=== PATIENT | male | born 1995 | race Two or more races ===

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

== ENCOUNTER 2017-01-23 16:01 | Emergency (ER) | payer OTHER ==
[~2017-01-23] VITALS: Ht 180.3 cm; Wt 83.5 kg
[~2017-01-23 16:01] MED LIST changes: +ANUSOL-HC30 GM RC; +COLACE100 MG ORAL
[2017-01-23] MEDS ORDERED: NKM (16:07)
--- NOTE | 2017-01-23 16:29 | Emergency Room Report ---
History of Present Illness General Chief Complaint: General Complaint Source: Patient Present Illness HPI 21-year-old male presents to the emergency department complaining of continued hemorrhoids despite previously been prescribed topical medication. Patient states that overall his pain has improved however he still will have recurrence of hemorrhoids with bowel movements or sitting for long periods of time. Patient states he was not followed up with a primary care doctor as he does not have one. Patient denies fevers, chills, blood in the stool. Denies BRBPR. Denies constipation states she has a bowel movement daily, has been taking Colace previously prescribed. He denies abdominal pain, nausea, vomiting, or significant changes in weight. Allergies: Coded Allergies: No Known Allergies (Unverified , 04/30/13) Patient History Past Medical History: see triage record Past Surgical History: none Pertinent Family History: none Immunizations: UTD Reviewed Nursing Documentation: PMH: Agreed, PSxH: Agreed Nursing Documentation-PMH Past Medical History: No Stated History Review of Systems All Other Systems: negative except mentioned in HPI Physical Exam Vital Signs Date Time Temp Pulse Resp B/P (MAP) Pulse Ox O2 Delivery O2 Flow Rate FiO2 01/23/17 16:03 98.2 68 19 141/96 97 Room Air Sp02 EP Interpretation: reviewed, normal General Appearance: no apparent distress, alert, GCS 15, non-toxic Head: normocephalic, atraumatic Eyes: bilateral eye normal inspection, bilateral eye PERRL ENT: hearing grossly normal, normal voice Neck: full range of motion Respiratory: lungs clear, normal breath sounds, speaking full sentences Cardiovascular #1: regular rate, rhythm Gastrointestinal: normal bowel sounds, non tender, soft, no guarding, no rebound Rectal: hemorrhoids - hemorrhoid noted in the 5 o'clock position, small in size , non-thrombosed, pink in color no evidence of infection or bleeding. Musculoskeletal: back normal, gait/station normal Neurologic: alert, oriented x3, responsive, motor strength/tone normal, sensory intact, speech normal Skin: normal color, no rash, warm/dry, well hydrated Medical Decision Making PA Attestation Dr. Romero is my supervising Physician whom patient management has been discussed with. Diagnostic Impression: Primary Impression: External hemorrhoids ER Course 21-year-old male presents to the emergency department complaining of continued hemorrhoids despite previously been prescribed topical medication. Patient states that overall his pain has improved however he still will have recurrence of hemorrhoids with bowel movements or sitting for long periods of time. Patient states he was not followed up with a primary care doctor as he does not have one. Patient denies fevers, chills, blood in the stool. Denies BRBPR. Denies constipation states she has a bowel movement daily, has been taking Colace previously prescribed. He denies abdominal pain, nausea, vomiting, or significant changes in weight. - Denies blood Ddx considered but are not limited to constipation , anal fissure, perianal abscess, rectal wall tear, thrombosed hemorrhoid, hemorrhoid. Vital signs: are WNL, pt. is afebrile H&PE are most consistent with hemorrhoid , secondary to straining/ constipation. bowl sounds are normo active. - non evidence of thrombosis. -d/w pt. importance of PCP follow up. ORDERS: Under quite at this time ED INTERVENTIONS: - Discussed the patient's self care interventions for hemorrhoids DISCHARGE: At this time pt. is stable for d/c to home. Will provide printed patient care instructions, and any necessary prescriptions. Care plan and follow up instructions have been discussed with the patient prior to discharge. Last Vital Signs Date Time Temp Pulse Resp B/P (MAP) Pulse Ox O2 Delivery O2 Flow Rate FiO2 01/23/17 16:03 98.2 68 19 141/96 97 Room Air Disposition: HOME, SELF-CARE Condition: Stable Scripts Docusate Sodium* (COLACE*) 100 Mg Capsule 100 MG ORAL TWICE A DAY for 15 Days, #30 CAP Prov: Roxy Borrego 01/23/17 Hydrocortisone Hc 2.5% Cream (ANUSOL-HC 2.5% CREAM) Y Cr 1 APPLIC RC TID, #30 GM Prov: Roxy Borrego 01/23/17 Patient Instructions: Hemorrhoids Additional Instructions: Take medications as directed. Follow up with a Primary Care Provider in 3-5 days, even if your symptoms have resolved. --Please review list of primary care clinics, if you do not already have a primary care provider Return sooner to ED if new symptoms occur, or current symptoms become worse. - Please note that this Emergency Department Report was dictated using [employer] grader operator technology software, occasionally this can lead to erroneous entry secondary to interpretation by the dictation equipment. Roxy Borrego Jan 23, 2017 16:29
[2017-01-23] MEDS ORDERED: COLACE100 MG ORAL (16:31)
[2017-01-23] MEDS ORDERED: ANUSOL-HC30 GM RC (16:31)
[2017-01-23 16:36] VITALS: BP 141/96
== END 2017-01-23 16:36 | disposition home or self-care (01) ==
LOC: EMR 16:20
DX: K64.4 Residual hemorrhoidal skin tags (principal)
CPT/HCPCS: 99283

== ENCOUNTER 2017-02-08 13:57 | Emergency (ER) | payer OTHER ==
[~2017-02-08] VITALS: Ht 180.3 cm; Wt 83.5 kg
[2017-02-08 14:48] LABS: APPEARANCE,URINE CLEAR; BILIRUBIN, URINE NEGATIVE (NEGATIVE); GLUCOSE, URINE (UA) NEGATIVE (NEGATIVE); KETONES,URINE NEGATIVE (NEGATIVE); LEUKOCYTE ESTERASE ,URINE 1+ (NEGATIVE); NITRITE,URINE NEGATIVE (NEGATIVE); PH,URINE 7 (4.5-8.0); PROTEIN,URINE NEGATIVE (NEGATIVE); UROBILINOGEN,URINE NORMAL MG/DL (0.0-1.0)
[2017-02-08 15:00] LABS: COLOR,URINE YELLOW
[2017-02-08] MEDS ORDERED: TERBINAFINE HC250 MG PO (15:06)
[2017-02-08 15:15] VITALS: BP 121/81
--- NOTE | 2017-02-08 15:25 | Emergency Room Report ---
History of Present Illness General Chief Complaint: Male Urogenital Problems Source: Patient Present Illness [facility] The patient is a 21-year-old male presenting for possible STD and rash. He noticed a rash on the groin and around his penis approximately 2 weeks prior. He describes this as itchy and burning. He states that he has been sexually active with only one female partner and uses condoms. He denies any symptoms from his partner. He denies any other symptoms including nausea, vomiting, fever, chills, abdominal pain, back pain, dysuria, hematuria, penile discharge Allergies: Coded Allergies: No Known Allergies (Unverified , 04/30/13) Patient History Past Medical History: see triage record Pertinent Family History: none Reviewed Nursing Documentation: PMH: Agreed, PSxH: Agreed Nursing Documentation-PMH Past Medical History: No Stated History Review of Systems All Other Systems: negative except mentioned in HPI Physical Exam Vital Signs Date Time Temp Pulse Resp B/P (MAP) Pulse Ox O2 Delivery O2 Flow Rate FiO2 02/08/17 14:02 98.1 75 18 130/83 98 Room Air Sp02 EP Interpretation: reviewed, normal General Appearance: no apparent distress, alert, GCS 15, non-toxic Head: normocephalic, atraumatic Eyes: bilateral eye normal inspection, bilateral eye PERRL ENT: hearing grossly normal, normal pharynx, no angioedema, normal voice Neck: full range of motion, supple/symm/no masses Respiratory: chest non-tender, lungs clear, normal breath sounds, speaking full sentences Cardiovascular #1: regular rate, rhythm, no edema Gastrointestinal: normal bowel sounds, non tender, soft, non-distended, no guarding, no rebound Genitourinary: normal inspection, no CVA tenderness Musculoskeletal: back normal, gait/station normal, normal range of motion, non- tender Neurologic: alert, oriented x3, responsive, motor strength/tone normal, sensory intact, speech normal Psychiatric: judgement/insight normal, memory normal, mood/affect normal, no suicidal/homicidal ideation Skin: rash - There are patches of erythema with some scaling. Sharply demarcated. Area is moist. Nontender. No edema Lymphatic: no adenopathy Medical Decision Making PA Attestation Dr. Dogde is my supervising physician. Patient management was discussed with my supervising physician Diagnostic Impression: Primary Impression: Tinea cruris ER Course The patient is a 21-year-old male presenting for possible STD and rash Differential diagnoses considered but not limited to: Gonorrhea, Chlamydia, herpes, tinea, urinary tract infection, among others PE: afebrile. NAD Abd is soft and non tender. : There are patches of erythema with some scaling. Sharply demarcated. Area is moist. Nontender. No edema. No penile tenderness. No lesions on penis. No scrotal edema or tenderness UA unremarkable The patient be treated for tinea and will be discharged home. ER precautions given Last Vital Signs Date Time Temp Pulse Resp B/P (MAP) Pulse Ox O2 Delivery O2 Flow Rate FiO2 02/08/17 15:15 98.1 80 16 121/81 97 Room Air Status: improved Disposition: HOME, SELF-CARE Condition: Improved Scripts Terbinafine Hcl* (LAMISIL*) 250 Mg Tablet 250 MG PO DAILY, #28 TAB Prov: EMMIE PEREZ 02/08/17 Patient Instructions: João Malone Additional Instructions: I discussed my findings with the patient. All questions and concerns have been answered. Treatment and medication compliance have been addressed. I advised the patient that they need to follow up with PMD in 3-5 days. Return to ED if symptoms worsen, new symptoms arise, or if needed for any reason. Patient verbalized understanding of discharge instructions. EMMIE PEREZ Feb 08, 2017 15:25
== END 2017-02-08 15:17 | disposition home or self-care (01) ==
LOC: EMR 14:16
DX: B35.6 Tinea cruris (principal)
CPT/HCPCS: 81003; 99283

== ENCOUNTER 2017-10-16 17:56 | Emergency (ER) | payer OTHER ==
[~2017-10-16] VITALS: Ht 177.8 cm; Wt 72.6 kg
[~2017-10-16 17:56] MED LIST changes: +TERBINAFINE HC250 MG PO
[2017-10-16 18:03] VITALS: BP 134/78
[2017-10-16] MEDS ORDERED: Acetaminophen 500mg (ES) tab ORAL ONE (18:30)
--- NOTE | 2017-10-16 18:35 | Emergency Room Report ---
History of Present Illness General Chief Complaint: Male Urogenital Problems Source: Patient Present Illness HPI 22-year-old male patient presents ER complaining of burning pain with urination for the past 2 days. Denies penile discharge, hematuria. Denies testicular pain or swelling. Denies penile rash or lesions. Reports his girlfriend exuberant similar symptoms and was seen in a ER, reports that her tests came back negative and she does not have any medications that she was referred to take. Reports sexually active, does not wear condoms. Denies flank pain, back pain, abdominal pain, fever, vomiting, chest pain, shortness of breath. Denies other acute symptoms. denies multiple sexual partners. Allergies: Coded Allergies: No Known Allergies (Unverified , 04/30/13) Patient History Past Medical History: see triage record Reviewed Nursing Documentation: PMH: Agreed; PSxH: Agreed Nursing Documentation-PMH Past Medical History: No Stated History Review of Systems All Other Systems: negative except mentioned in HPI Physical Exam Vital Signs Date Time Temp Pulse Resp B/P (MAP) Pulse Ox O2 Delivery O2 Flow Rate FiO2 10/16/17 18:03 98.2 87 18 134/78 97 Room Air 98.2 Sp02 EP Interpretation: reviewed, normal General Appearance: well appearing, no apparent distress, alert, GCS 15, non- toxic Head: normocephalic, atraumatic Eyes: bilateral eye normal inspection, bilateral eye PERRL ENT: hearing grossly normal, normal pharynx, no angioedema, normal voice, uvula midline, moist mucus membranes Neck: full range of motion Respiratory: lungs clear, normal breath sounds, no rhonchi, no respiratory distress, no accessory muscle use, no wheezing, speaking full sentences Cardiovascular #1: regular rate, rhythm, no edema Gastrointestinal: non tender, soft, no mass, non-distended, no guarding, no rebound Genitourinary: no CVA tenderness, deferred Musculoskeletal: back normal, digits/nails normal, gait/station normal, normal range of motion, non-tender Neurologic: alert, oriented x3, responsive, motor strength/tone normal, sensory intact Psychiatric: mood/affect normal Skin: no rash Medical Decision Making PA Attestation Dr. Kohler is my supervising Physician whom patient management has been discussed with. Diagnostic Impression: Primary Impression: Dysuria ER Course Pt presents to ED c/o dysuria 2 days. DDX considered but are not limited to cystitis, pyelonephritis, STI, urethritis. VITAL SIGNS are WNL, patient is afebrile. Ordered UA. ER COURSE UA unremarkable, no bacteria, no nitrites, low suspicion for UTI. does not require antibiotic coverage for UTI infection. Due to patient history of pain with urination and recent sexual activity without condom, will provide patient treatment with Rocephin and azithromycin while in the ER to cover for possible STI infection. Instructed patient to followup with STI clinic and/or primary care provider for further testing and treatment. Avoid sexual activity for the next 2 weeks. Wear condoms during sex. Patient was alert sexual partners need for testing and treatment. Followup with STI clinic for testing and treatment. take Tylenol for pain symptoms. Patient is resting comfortably in chair, nontoxic appearing, in no acute distress. Patient states they feel better and is ready to go home. DISCHARGE Patient is stable for discharge. Patient resting comfortably, in no acute distress, nontoxic appearing, talking without difficulty. Will provide with patient care instructions and any necessary prescriptions. Patient understands and agrees to treatment plan. Patient encouraged to drink plenty of fluids. Patient to take medication as instructed. Care plan and follow-up instructions provided. Patient questions asked and answered. Reports understanding and agreement to treatment plan. Patient instructed to follow-up with primary care provider in 3 - 5 days. ER precautions given. Patient instructed to return to ER immediately for any new or worsening of symptoms. Including but not limited to fever, abdominal pain , intractable vomiting. - Please note that this Emergency Department Report was dictated using [employer] Biosciencesinternal affairs investigator technology software, occasionally this can lead to erroneous entry secondary to interpretation by the dictation equipment. Labs Test 10/16/17 18:23 Urine Color Yellow Urine Appearance Clear Urine pH 7 (4.5-8.0) Urine Specific [place] 1.010 (1.005-1.035) Urine Protein Negative (NEGATIVE) Urine Glucose (UA) Negative (NEGATIVE) Urine Ketones 1+ (NEGATIVE) Urine Occult Blood Negative (NEGATIVE) Urine Nitrite Negative (NEGATIVE) Urine Bilirubin Negative (NEGATIVE) Urine Urobilinogen 1 MG/DL (0.0-1.0) Urine Leukocyte Esterase 1+ (NEGATIVE) Urine RBC 0-2 /HPF (0 - 0) Urine WBC 2-4 /HPF (0 - 0) Urine Squamous Epithelial Cells None /LPF (NONE/OCC) Urine Bacteria None /HPF (NONE) Urine Mucus Many /LPF (NONE/OCC) Last Vital Signs Date Time Temp Pulse Resp B/P (MAP) Pulse Ox O2 Delivery O2 Flow Rate FiO2 10/16/17 18:03 98.2 87 18 134/78 97 Room Air 98.2 Disposition: HOME, SELF-CARE Condition: Stable Patient Instructions: Dysuria, Sexually Transmitted Disease Additional Instructions: Followup with primary care provider in 3 -5 days. Take medications as directed. Patient questions asked and answered. ER precautions given, patient instructed to return to ER immediately for any new or worsening of symptoms. Roger Sy Oct 16, 2017 18:34
[2017-10-16 18:57] LABS: APPEARANCE,URINE CLEAR; BILIRUBIN, URINE NEGATIVE (NEGATIVE); GLUCOSE, URINE (UA) NEGATIVE (NEGATIVE); KETONES,URINE 1+ (NEGATIVE); LEUKOCYTE ESTERASE ,URINE 1+ (NEGATIVE); NITRITE,URINE NEGATIVE (NEGATIVE); PH,URINE 7 (4.5-8.0); PROTEIN,URINE NEGATIVE (NEGATIVE); UROBILINOGEN,URINE 1 MG/DL (0.0-1.0)
[2017-10-16 18:59] LABS: COLOR,URINE YELLOW
[2017-10-16] MEDS ORDERED: Azithromycin 250mg tab ORAL ONE (19:30)
[2017-10-16] MEDS ORDERED: Lidocaine 1% MPF 10mg/ml 5ml INJ ONE (19:30)
[2017-10-16 19:44] VITALS: BP 134/78
== END 2017-10-16 19:45 | disposition home or self-care (01) ==
LOC: EMR 18:29
DX: R30.0 Dysuria (principal)
CPT/HCPCS: 81003; 96372; 99283; J0696; Q0144

== ENCOUNTER 2018-02-24 17:10 | Emergency (ER) | payer OTHER ==
[~2018-02-24] VITALS: Ht 180.3 cm; Wt 83.5 kg
[2018-02-24 17:15] VITALS: BP 134/83
[2018-02-24] MEDS ORDERED: Phenazopyridine 200mg tab ORAL ONE (17:30)
[2018-02-24] MEDS ORDERED: Lidocaine 1% MPF 10mg/ml 5ml INJ ONE (17:45)
[2018-02-24] MEDS ORDERED: Azithromycin 250mg tab ORAL ONE (17:45)
[2018-02-24 17:47] LABS: APPEARANCE,URINE CLEAR; BILIRUBIN, URINE NEGATIVE (NEGATIVE); COLOR,URINE PALE YELLOW; GLUCOSE, URINE (UA) NEGATIVE (NEGATIVE); KETONES,URINE NEGATIVE (NEGATIVE); LEUKOCYTE ESTERASE ,URINE NEGATIVE (NEGATIVE); NITRITE,URINE NEGATIVE (NEGATIVE); PH,URINE 6.5 (4.5-8.0); PROTEIN,URINE NEGATIVE (NEGATIVE); UROBILINOGEN,URINE NORMAL MG/DL (0.0-1.0)
--- NOTE | 2018-02-24 18:02 | Emergency Room Report ---
History of Present Illness General Chief Complaint: Male Urogenital Problems Source: Patient Present Illness HPI 22-year-old male presents to the emergency department complaining of 6 out of 10 in severity dysuria 2 days. Patient reports recent unprotected intercourse and wants to be treated for STI. Patient denies penile discharge, swollen tender lymph nodes, joint pain, fevers, chills, testicular pain or swelling. Patient denies genital lesions or rashes. He denies hematuria, urinary frequency or urgency. Denies aggravating or relieving factors. Allergies: Coded Allergies: No Known Allergies (Unverified , 04/30/13) Patient History Past Medical History: see triage record Past Surgical History: none Pertinent Family History: none Immunizations: UTD Reviewed Nursing Documentation: PMH: Agreed; PSxH: Agreed Nursing Documentation-PMH Past Medical History: No Stated History Review of Systems All Other Systems: negative except mentioned in HPI Physical Exam Vital Signs Date Time Temp Pulse Resp B/P (MAP) Pulse Ox O2 Delivery O2 Flow Rate FiO2 02/24/18 17:14 98.2 68 16 134/83 99 Room Air Sp02 EP Interpretation: reviewed, normal General Appearance: no apparent distress, alert, GCS 15, non-toxic Head: normocephalic, atraumatic Eyes: bilateral eye normal inspection, bilateral eye PERRL ENT: hearing grossly normal, normal voice Neck: full range of motion Respiratory: lungs clear, normal breath sounds, speaking full sentences Cardiovascular #1: regular rate, rhythm Gastrointestinal: non tender, soft Genitourinary: normal inspection, no CVA tenderness, deferred - genital exam deferred. Musculoskeletal: back normal, gait/station normal, normal range of motion, non- tender Neurologic: alert, oriented x3, responsive, motor strength/tone normal, sensory intact, speech normal, grossly normal Psychiatric: judgement/insight normal Skin: normal color, no rash, warm/dry, well hydrated Lymphatic: no adenopathy Medical Decision Making PA Attestation Dr. brady is my supervising Physician whom patient management has been discussed with. Diagnostic Impression: Primary Impression: Urethritis ER Course 22-year-old male presents to the emergency department complaining of 6 out of 10 in severity dysuria 2 days. Patient reports recent unprotected intercourse and wants to be treated for STI. Patient denies penile discharge, swollen tender lymph nodes, joint pain, fevers, chills, testicular pain or swelling. Patient denies genital lesions or rashes. He denies hematuria, urinary frequency or urgency. Denies aggravating or relieving factors. Ddx considered but are not limited to UTi , Urethritis, LGV, STI, Stone, Cystitis, prostatitis Genital exam was deferred, will be treating pt. prophylactically. Vital signs: are WNL, pt. is afebrile H&PE are most consistent with Urethritis ORDERS: - UA : few bacteria but no elevated or increase in WBC's or Leuks. most likely contamination will be refluxed to culture. ED INTERVENTIONS: -250mg Rocephin IM -1gm Azithromycin DISCHARGE: At this time pt. is stable for d/c to home. Will provide printed patient care instructions, and any necessary prescriptions. Care plan and follow up instructions have been discussed with the patient prior to discharge. Labs Test 02/24/18 17:30 Urine Color Pale yellow Urine Appearance Clear Urine pH 6.5 (4.5-8.0) Urine Specific [place] 1.015 (1.005-1.035) Urine Protein Negative (NEGATIVE) Urine Glucose (UA) Negative (NEGATIVE) Urine Ketones Negative (NEGATIVE) Urine Blood 1+ (NEGATIVE) Urine Nitrite Negative (NEGATIVE) Urine Bilirubin Negative (NEGATIVE) Urine Urobilinogen Normal MG/DL (0.0-1.0) Urine Leukocyte Esterase Negative (NEGATIVE) Urine RBC 2-4 /HPF (0 - 0) Urine WBC 0-2 /HPF (0 - 0) Urine Squamous Epithelial Cells None /LPF (NONE/OCC) Urine Bacteria Few /HPF (NONE) Last Vital Signs Date Time Temp Pulse Resp B/P (MAP) Pulse Ox O2 Delivery O2 Flow Rate FiO2 02/24/18 17:15 98.2 68 16 134/83 99 Room Air Disposition: HOME, SELF-CARE Condition: Stable Referrals: [facility] (PCP) Patient Instructions: Urethritis, Adult Additional Instructions: Take medications as directed. -ABX take 1 week for full effect. Until then, refrain from unprotected intercourse as you are still considered contagious. Follow up with a Primary Care Provider in 3-5 days, even if your symptoms have resolved. --Please review list of primary care clinics, if you do not already have a primary care provider Return sooner to ED if new symptoms occur, or current symptoms become worse. - Please note that this Emergency Department Report was dictated using [employer] night technology software, occasionally this can lead to erroneous entry secondary to interpretation by the dictation equipment. Roxy Borrego Feb 24, 2018 18:02
[2018-02-24 18:09] VITALS: BP 125/76
== END 2018-02-24 18:10 | disposition home or self-care (01) ==
LOC: EMR 17:34
DX: N34.2 Other urethritis (principal)
CPT/HCPCS: 81003; 96372; 99283; J0696; Q0144

== ENCOUNTER 2018-06-23 08:54 | Emergency (ER) | payer OTHER ==
[~2018-06-23] VITALS: Ht 177.8 cm; Wt 77.1 kg
[2018-06-23 09:28] VITALS: BP 126/73
--- NOTE | 2018-06-23 09:30 | NUR ---
ED Nurse Note:pt. came with abscess on left lip since yesterday
--- NOTE | 2018-06-23 10:06 | Emergency Room Report ---
History of Present Illness General Chief Complaint: Skin Rash/Abscess Source: Patient Present Illness HPI This patient states that he noted a swelling on his upper lip for the past 24 hours. He states that it is tender. He admits that he was in [place] 3 days ago and did have mouth and sexual contact with a person he did not know. He states the sex was protected. He denies sore throat. Denies fever or chills. He denies headache or neck pain. He has no other complaints. Allergies: Coded Allergies: No Known Allergies (Unverified , 06/23/18) Patient History Past Medical History: none, see triage record Social History: Reports: alcohol use; Denies: smoking, drug use Reviewed Nursing Documentation: PMH: Agreed; PSxH: Agreed Nursing Documentation-PMH Past Medical History: No Stated History Review of Systems All Other Systems: negative except mentioned in HPI Physical Exam Vital Signs Date Time Temp Pulse Resp B/P (MAP) Pulse Ox O2 Delivery O2 Flow Rate FiO2 06/23/18 09:05 98.2 81 16 126/73 97 Room Air Sp02 EP Interpretation: reviewed, normal General Appearance: no apparent distress, alert, GCS 15, non-toxic Head: normocephalic, atraumatic Eyes: bilateral eye normal inspection, bilateral eye PERRL ENT: hearing grossly normal, normal pharynx, no angioedema, normal voice, other - Upper lip with vesicular and erythematous lesion. Neck: full range of motion, supple/symm/no masses Respiratory: no respiratory distress, no retraction, no accessory muscle use, speaking full sentences Rectal: deferred Musculoskeletal: back normal, gait/station normal, normal range of motion, non- tender Neurologic: alert, oriented x3, responsive, motor strength/tone normal, sensory intact, speech normal Psychiatric: judgement/insight normal, memory normal, mood/affect normal, no suicidal/homicidal ideation Skin: warm/dry, well hydrated, other - See above in ENT Medical Decision Making Diagnostic Impression: Primary Impression: Herpes simplex labialis ER Course This patient has findings on physical exam consistent with herpes simplex labialis. I will treat the patient with acyclovir. There does not appear to be any complications at this time. The patient is not immunocompromised. The patient is instructed to follow-up with his primary care physician. The patient given return precautions and follow-up instructions. Last Vital Signs Date Time Temp Pulse Resp B/P (MAP) Pulse Ox O2 Delivery O2 Flow Rate FiO2 06/23/18 09:28 98.2 82 16 126/73 97 Room Air Disposition: HOME, SELF-CARE Condition: Stable Referrals: [facility] ([facility]P) Denice Kohler DO Jun 23, 2018 10:06
[2018-06-23] MEDS ORDERED: ACYCLOVIR400 MG ORAL (10:07)
[2018-06-23 10:14] VITALS: BP 126/73
--- NOTE | 2018-06-23 10:15 | NUR ---
ER DISCHARGE NOTE: Patient is cleared to be discharged per ERMD, pt is aox4, on room air, with stable vital signs. pt was given dc and prescription instructions, pt was able to verbalize understanding, pt is able to ambulate with steady gait. pt took all belongings.
== END 2018-06-23 10:15 | disposition home or self-care (01) ==
LOC: EMR 09:20
DX: B00.1 Herpesviral vesicular dermatitis (principal)
CPT/HCPCS: 99282

== ENCOUNTER 2018-07-06 14:39 | Emergency (ER) | payer OTHER ==
[~2018-07-06] VITALS: Ht 177.8 cm; Wt 77.1 kg
[~2018-07-06 14:39] MED LIST changes: +ACYCLOVIR400 MG ORAL
[2018-07-06 14:51] VITALS: BP 129/85
[2018-07-06 15:24] LABS: APPEARANCE,URINE CLEAR; BILIRUBIN, URINE NEGATIVE (NEGATIVE); COLOR,URINE PALE YELLOW; GLUCOSE, URINE (UA) NEGATIVE (NEGATIVE); KETONES,URINE NEGATIVE (NEGATIVE); LEUKOCYTE ESTERASE ,URINE 1+ (NEGATIVE); NITRITE,URINE NEGATIVE (NEGATIVE); PH,URINE 6 (4.5-8.0); PROTEIN,URINE NEGATIVE (NEGATIVE); UROBILINOGEN,URINE NORMAL MG/DL (0.0-1.0)
--- NOTE | 2018-07-06 15:30 | Emergency Room Report ---
History of Present Illness General Chief Complaint: Male Urogenital Problems Source: Patient Present Illness HPI 23-year-old male past medical history here requesting to be tested for possible herpes virus infection. He was here recently 2 weeks ago for cold sore which she reports having for the first time does not recall having any more in the past and it started after his birthday weekend and vigorous. [place] having his partner being positive for any sexually transmitted diseases. Has painful lesions in the genitalia denies penile discharge or urinary symptoms. He took acyclovir when he was first diagnosed with cold sore 2 weeks ago and now has no more cold sores. Does not have a primary care physician and wants to be tested for HSV-1 and HSV-2. Patient would also like to know about HSV virus. Denies dysuria, hematuria, fever chills, nausea vomiting, and all other associated symptoms. Is not symptomatic during his ER visit today Allergies: Coded Allergies: No Known Allergies (Unverified , 06/23/18) Patient History Past Medical History: see triage record Past Surgical History: unable to obtain Pertinent Family History: none Immunizations: UTD Reviewed Nursing Documentation: PMH: Agreed; PSxH: Agreed Nursing Documentation-PMH Past Medical History: No Stated History Review of Systems All Other Systems: negative except mentioned in HPI Physical Exam Vital Signs Date Time Temp Pulse Resp B/P (MAP) Pulse Ox O2 Delivery O2 Flow Rate FiO2 07/06/18 14:51 98.4 63 15 129/85 97 Room Air Sp02 EP Interpretation: reviewed, normal General Appearance: normal inspection, well appearing Head: normocephalic, atraumatic Eyes: bilateral eye normal inspection, bilateral eye PERRL ENT: normal ENT inspection, normal pharynx, no angioedema, other - No cold sore noted Neck: normal inspection, supple Respiratory: normal inspection, lungs clear, no retraction Cardiovascular #1: normal inspection, no edema, no murmur Gastrointestinal: normal inspection, soft Rectal: deferred Genitourinary: no CVA tenderness Musculoskeletal: normal inspection, back normal Neurologic: normal inspection, alert Psychiatric: anxious Skin: normal inspection, normal color, no rash, warm/dry Lymphatic: normal inspection, no adenopathy Medical Decision Making PA Attestation Diagnosis and treatment plans were reviewed and discussed with my supervising physician Dr. Dodge Diagnostic Impression: Primary Impression: Cold sore Additional Impression: Routine screening for STI (sexually transmitted infection) ER Course 23-year-old male past medical history here requesting to be tested for possible herpes virus infection. He was here recently 2 weeks ago for cold sore which she reports having for the first time does not recall having any more in the past and it started after his birthday weekend and vigorous. [place] having his partner being positive for any sexually transmitted diseases. Has painful lesions in the genitalia denies penile discharge or urinary symptoms. He took acyclovir when he was first diagnosed with cold sore 2 weeks ago and now has no more cold sores. Does not have a primary care physician and wants to be tested for HSV-1 and HSV-2. Patient would also like to know about HSV virus. Denies dysuria, hematuria, fever chills, nausea vomiting, and all other associated symptoms. Is not symptomatic during his ER visit today Ddx considered but are not limited to herpes 1, herpes 2, STI screening, UTI Vital signs: are WNL, pt. is afebrile H&PE are most consistent with STI screening hx of cold sore ORDERS: HSV1 and 2 , UA ED INTERVENTIONS: None required at this time. DISCHARGE: At this time pt. is stable for d/c to home. Will provide printed patient care instructions, and any necessary prescriptions. Care plan and follow up instructions have been discussed with the patient prior to discharge. To follow-up with a primary care provider regarding the results as I told the patient that it takes at least a week for the results to be ready since it is a send out and it is not an emergency room criteria to expedite the results considering patient is currently asymptomatic patient to establish primary care after this visit. Last Vital Signs Date Time Temp Pulse Resp B/P (MAP) Pulse Ox O2 Delivery O2 Flow Rate FiO2 07/06/18 14:51 98.4 63 15 129/85 97 Room Air Disposition: HOME, SELF-CARE Condition: Stable Patient Instructions: Cold Sore, [id number] Elliott Guerrero Jul 06, 2018 15:30
--- NOTE | 2018-07-06 15:32 | NUR ---
ED Nurse Note: Collected blood specimen.
[2018-07-06 15:38] VITALS: BP 132/70
--- NOTE | 2018-07-06 15:38 | NUR ---
ER DISCHARGE NOTE: Pt was seen for evaluation. Pt had unprotected sex. Patient is cleared to be discharged per PA, pt is aox4, on room air, with stable vital signs. pt was given dc instructions, pt was able to verbalize understanding, pt id band removed. pt is able to ambulate with steady gait. pt took all belongings.
== END 2018-07-06 15:38 | disposition home or self-care (01) ==
LOC: EMR 15:35
DX: B00.1 Herpesviral vesicular dermatitis (principal); Z11.3 Encounter for screening for infections with a predominantly sexual mode of transmission
CPT/HCPCS: 81001; 86695; 86696; 99283

== ENCOUNTER 2018-09-26 20:23 | Emergency (ER) | payer OTHER ==
[~2018-09-26] VITALS: Ht 177.8 cm; Wt 77.1 kg
[2018-09-26 20:40] VITALS: BP 124/73
--- NOTE | 2018-09-26 20:40 | NUR ---
ER Nurse Note: Pt came from home c/o flu like symptoms for since one day. Pt stated he has a sore throat, difficulty swollowing. Pt denies n/v, chills. O2 sat >94% RA. Will continue to montior.
--- NOTE | 2018-09-26 20:51 | Emergency Room Report ---
History of Present Illness General Chief Complaint: Flu Like Symptoms Source: Patient Present Illness HPI The patient presents with fevers chills and sore throat that began this afternoon. It hurts to swallow. He has muscle aches 7/10 at this time. He has not taken any medication. There is no nausea, vomiting, diarrhea or dysuria. At his work he is exposed to sick people. 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 Allergies: Coded Allergies: No Known Allergies (Unverified , 09/26/18) Patient History Past Medical History: see triage record Social History: Denies: smoking, alcohol use, drug use Social History Narrative rail crew member [employer] Reviewed Nursing Documentation: PMH: Agreed; PSxH: Agreed Review of Systems All Other Systems: negative except mentioned in HPI Physical Exam Vital Signs Date Time Temp Pulse Resp B/P (MAP) Pulse Ox O2 Delivery O2 Flow Rate FiO2 09/26/18 20:28 101.1 128 26 124/73 (90) 96 Room Air Sp02 EP Interpretation: reviewed, normal General Appearance: well appearing, no apparent distress Head: normocephalic, atraumatic Eyes: bilateral eye normal inspection, bilateral eye PERRL ENT: hearing grossly normal, normal voice, moist mucus membranes, tonsillar swelling, pharyngeal erythema Neck: full range of motion, supple Respiratory: no respiratory distress, speaking full sentences Cardiovascular #1: regular rate, rhythm Cardiovascular #2: 2+ radial (R) Gastrointestinal: normal inspection Musculoskeletal: digits/nails normal, gait/station normal, normal range of motion, no calf tenderness Neurologic: alert, oriented x3, grossly normal Psychiatric: mood/affect normal Skin: no rash Medical Decision Making Diagnostic Impression: Primary Impression: Acute pharyngitis Qualified Codes: J02.9 - Acute pharyngitis, unspecified ER Course Patient presents with fever and sore throat with muscle aches. Differential includes a viral versus bacterial pharyngitis. Antibiotics, prednisone and Tylenol are indicated. Patient is stable for outpatient observation and treatment. Last Vital Signs Date Time Temp Pulse Resp B/P (MAP) Pulse Ox O2 Delivery O2 Flow Rate FiO2 09/26/18 21:40 101.2 09/26/18 21:40 98 20 128/76 98 Room Air Status: improved Disposition: HOME, SELF-CARE Condition: Improved Scripts Acetaminophen (Tylenol) 325 Mg Tablet 650 MG ORAL Q6H PRN for Prn Pain/Headache/Temp > 101, #20 TAB 0 Refills Prov: Moy Harrison MD 09/26/18 Ibuprofen* (MOTRIN*) 600 Mg Tablet 600 MG ORAL Q6H PRN for For Pain, #20 TAB 0 Refills Prov: Moy Harrison MD 09/26/18 Amoxicillin* (AMOXIL*) 500 Mg Capsule 500 MG ORAL THREE TIMES A DAY, #21 CAP Prov: Moy Harrison MD 09/26/18 Moy Harrison MD Sep 26, 2018 20:51
[2018-09-26] MEDS ORDERED: AMOXICILLIN500 MG ORAL (20:53)
[2018-09-26] MEDS ORDERED: IBUPROFEN600 MG ORAL (20:53)
[2018-09-26] MEDS ORDERED: TYLENOL325 MG ORAL (20:53)
[2018-09-26 21:40] VITALS: BP 128/76
--- NOTE | 2018-09-26 21:40 | NUR ---
ER Nurse Note: Pt seen, treated, medically cleared for discharge by ERMD. All orders completed per ERMD orders. Discharge instuctions and prescriptions given with repeat verbalization by pt. All orders completed per ERMD orders. Pt a&ox4, VSS, no fever, no signs of distress. Pt denies pain. ID band removed. Pt ambulaitory with steady gait, left with all belongings, left with own transportation.
== END 2018-09-26 21:40 | disposition home or self-care (01) ==
LOC: EMR 21:40
DX: J02.9 Acute pharyngitis, unspecified (principal)
CPT/HCPCS: 99282; J7512

== ENCOUNTER 2018-09-28 23:34 | Emergency (ER) | payer OTHER ==
[~2018-09-28] VITALS: Ht 177.8 cm; Wt 77.1 kg
[~2018-09-28 23:34] MED LIST changes: +TYLENOL325 MG ORAL
[2018-09-29 00:12] VITALS: BP 131/94
--- NOTE | 2018-09-29 00:12 | NUR ---
ED Nurse Note: pt walked in c/o itching sensation on facial area, pt reports after he shaved, when the hair started to grow it started itching. no sx infection noted, skin intact, will cont monitor.
--- NOTE | 2018-09-29 00:18 | Emergency Room Report ---
History of Present Illness General Chief Complaint: Skin Rash/Abscess Source: Patient Present Illness HPI This is a 23-year-old male with no past medical history. He presents with chief complaint of facial itching. Onset for last month. He said that he was forced to shave his salcedo for work. He is fine during shaving. But when the hair started growing in his get itchy. He denies any trauma. Denies any fever chills but no redness. Denies any other complaint. Allergies: Coded Allergies: No Known Allergies (Unverified , 09/26/18) Patient History Past Medical History: see triage record, old chart reviewed Past Surgical History: none Pertinent Family History: none Social History: Denies: smoking Immunizations: other Reviewed Nursing Documentation: PMH: Agreed; PSxH: Agreed Review of Systems Eye: Denies: eye pain, blurred vision ENT: Denies: ear pain, nose congestion, throat swelling Respiratory: Denies: cough, shortness of breath Cardiovascular: Denies: chest pain, palpitations Gastrointestinal: Denies: abdominal pain, diarrhea, nausea, vomiting Musculoskeletal: Denies: back pain, joint pain Skin: Denies: rash Neurological: Denies: headache, numbness Endocrine: Denies: increased thirst, increased urine Hematologic/Lymphatic: Denies: easy bruising All Other Systems: negative except mentioned in HPI Physical Exam Vital Signs Date Time Temp Pulse Resp B/P (MAP) Pulse Ox O2 Delivery O2 Flow Rate FiO2 09/28/18 23:56 98.1 68 16 131/94 (106) 99 Room Air Vitals normal Sp02 EP Interpretation: reviewed, normal General Appearance: well appearing, no apparent distress, alert Head: normocephalic, atraumatic Eyes: bilateral eye PERRL, bilateral eye EOMI ENT: hearing grossly normal, normal pharynx Neck: full range of motion, supple, no meningismus Respiratory: chest non-tender, lungs clear, normal breath sounds Cardiovascular #1: regular rate, rhythm, no murmur Gastrointestinal: normal bowel sounds, non tender, no mass, no organomegaly, no bruit, non-distended Musculoskeletal: back normal, gait/station normal, normal range of motion Psychiatric: mood/affect normal Medical Decision Making Diagnostic Impression: Primary Impression: Pruritus of skin ER Course With itching from his hair. No evidence of any ingrown hair. No evidence of any infection. No cellulitis. Will discharge home. Last Vital Signs Date Time Temp Pulse Resp B/P (MAP) Pulse Ox O2 Delivery O2 Flow Rate FiO2 09/29/18 00:12 98.1 68 16 131/94 99 Room Air Status: unchanged Disposition: HOME, SELF-CARE Condition: Stable Scripts Hydrocortisone Acetate/Aloe V (Hydrocortisone-Aloe 0.5% Cream) 28.4 Gm Cream..g. 1 GM TP BID, #28.4 GM Prov: Shola Melchor MD 09/29/18 Diphenhydramine Hcl* (BENADRYL*) 25 Mg Capsule 50 MG ORAL Q6H PRN for Itching, #30 CAP Prov: Shola Melchor MD 09/29/18 Additional Instructions: Follow-up with your doctor in 7 days. Return if worse. Shola Melchor MD Sep 29, 2018 00:18
[2018-09-29] MEDS ORDERED: HYDROCORTISON28.4 G4 TP (00:22)
[2018-09-29] MEDS ORDERED: BENADRYL25 MG ORAL (00:22)
[2018-09-29 00:25] VITALS: BP 131/94
--- NOTE | 2018-09-29 00:25 | NUR ---
ED Nurse Note: pt cleared to be d/c per ERMD, pt discharge and aftercare instruction provided w/ prescription, pt education done via discussion and handout, pt advised to follow up with pcp or return to ed if changes in condition, pt verbalized understanding and agrees with plan, vss, ambulatory w/ steady gait, left w/ all belongings.
== END 2018-09-29 00:25 | disposition home or self-care (01) ==
LOC: EMR 23:59
DX: L29.9 Pruritus, unspecified (principal)
CPT/HCPCS: 99282

== ENCOUNTER 2018-10-13 22:29 | Emergency (ER) | payer OTHER ==
[~2018-10-13] VITALS: Ht 177.8 cm; Wt 77.1 kg
[~2018-10-13 22:29] MED LIST changes: +BENADRYL25 MG ORAL; +HYDROCORTISON28.4 G4 TP
[2018-10-13 22:30] VITALS: BP 123/80
[2018-10-13] MEDS ORDERED: NKM (22:34)
--- NOTE | 2018-10-13 22:39 | NUR ---
ED Nurse Note: PATIENT AMBULATED TO ED WITH C/O ITICHY FACE X 2 WEEKS. SEEN AT [facility] [place] FOR SAME REASON. PT REPORTS NO RELIEF. Pt is AO x 4 times, VSS, on room air no distress. KAILASHD seen Pt at bedside.
[2018-10-13] MEDS ORDERED: PREDNISONE20 MG ORAL (22:56)
[2018-10-13] MEDS ORDERED: DIPHENHYDRAMINE25 M1 ORAL (22:56)
[2018-10-13 23:06] VITALS: BP 123/80
--- NOTE | 2018-10-13 23:06 | NUR ---
ER DISCHARGE NOTE: Patient is cleared to be discharged per ERMD, pt is aox4, on room air, with stable vital signs. pt was given dc and prescription instructions, pt was able to verbalize understanding, pt id band removed without complications. pt is able to ambulate with steady gait. pt took all belongings.
--- NOTE | 2018-10-14 01:14 | Emergency Room Report ---
History of Present Illness General Chief Complaint: Skin Rash/Abscess Source: Patient Present Illness HPI 23-year-old male presents ED for evaluation. Patient complaining of itchiness to his face. Started a few weeks ago after shaving for work. States that he became very itchy afterwards and came to the ED. Was prescribed medications and states that helped somewhat but itching persists. Denies any known food or medication allergies. Denies any tongue swelling or throat swelling. Denies pain. No other aggravating or relieving factors. Denies any other associated symptoms Allergies: Coded Allergies: No Known Allergies (Unverified , 09/26/18) Patient History Past Medical History: none Past Surgical History: none Pertinent Family History: none Social History: Denies: smoking, alcohol use, drug use Immunizations: UTD Reviewed Nursing Documentation: PMH: Agreed; PSxH: Agreed Nursing Documentation-PMH Past Medical History: No Stated History Review of Systems All Other Systems: negative except mentioned in HPI Physical Exam Vital Signs Date Time Temp Pulse Resp B/P (MAP) Pulse Ox O2 Delivery O2 Flow Rate FiO2 10/13/18 22:30 98.6 77 18 123/80 97 Room Air Sp02 EP Interpretation: reviewed, normal General Appearance: no apparent distress, alert, GCS 15, non-toxic Head: normocephalic Eyes: bilateral eye normal inspection, bilateral eye PERRL ENT: hearing grossly normal Neck: normal inspection Respiratory: normal inspection Cardiovascular #1: normal inspection Gastrointestinal: normal inspection Rectal: deferred Genitourinary: no CVA tenderness Musculoskeletal: normal inspection Neurologic: alert, oriented x3, responsive, motor strength/tone normal, sensory intact, speech normal Psychiatric: judgement/insight normal, memory normal, mood/affect normal, no suicidal/homicidal ideation Skin: no rash Lymphatic: normal inspection Medical Decision Making Diagnostic Impression: Primary Impression: Rash and other nonspecific skin eruption ER Course Hospital Course 23 yo M presents with rash to face Differential diagnoses include: Cellulitis, dermatitis, insect bite, abscess Clinical course Patient placed on stretcher. After initial history, physical exam reveals a young male in no acute distress. I am there is no obvious rash/erythema or induration at the hairline of his salcedo. No stridor. No tongue swelling or throat swelling no obvious evidence of urticaria. Discussed findings with patient. Initially prescribed steroid cream and Benadryl. Will prescribe prednisone and continue Benadryl for now. We will also recommend evaluation by dermatology. States he will follow-up with his PMD Diagnosis - rash stable and discharged to home with prescription for prednisone, benedryl. Instructed to followup with PMD/dermatology. Instructed return to ED if symptoms recur or worsen Last Vital Signs Date Time Temp Pulse Resp B/P (MAP) Pulse Ox O2 Delivery O2 Flow Rate FiO2 10/13/18 23:06 98.6 77 18 123/80 97 Room Air Status: improved Disposition: HOME, SELF-CARE Condition: Stable Scripts Diphenhydramine Hcl* (DIPHENHYDRAMINE HCL*) 25 Mg Capsule 25 MG ORAL Q6H PRN for Itching for 5 Days, #30 CAP 0 Refills Prov: Frank Hansen MD 10/13/18 Prednisone* (PREDNISONE*) 20 Mg Tablet 40 MG ORAL DAILY, #10 TAB Prov: Frank Hansen MD 10/13/18 [facility] ([facility]P) Patient Instructions: Rash Additional Instructions: followup with dermatology Frank Hansen MD Oct 14, 2018 01:14
== END 2018-10-13 23:06 | disposition home or self-care (01) ==
LOC: EMR 22:52
DX: R21 Rash and other nonspecific skin eruption (principal)
CPT/HCPCS: 99282

== ENCOUNTER 2018-11-13 08:43 | Emergency (ER) | payer OTHER ==
[~2018-11-13] VITALS: Ht 177.8 cm; Wt 77.1 kg
[~2018-11-13 08:43] MED LIST changes: +DIPHENHYDRAMINE25 M1 ORAL; +PREDNISONE20 MG ORAL
--- NOTE | 2018-11-13 09:07 | NUR ---
ED Nurse Note: Pt came in from home due to sorethroat since yesterday, pain / juan. AOx4, VSS juan, no fever. Will cont to monitor.
--- NOTE | 2018-11-13 09:12 | NUR ---
ED Nurse Note: Pharmacy called about insufficient medication amount. Will bring the medication to ER.
--- NOTE | 2018-11-13 09:12 | NUR ---
ER DISCHARGE NOTE: Patient is cleared to be discharged per ERMD, pt is aox4, on room air, with stable vital signs. pt was given dc and prescription instructions, pt was able to verbalize understanding, pt id band removed. pt is able to ambulate with steady gait. pt took all belongings.
--- NOTE | 2018-11-13 09:13 | Emergency Room Report ---
History of Present Illness General Chief Complaint: Sore Throat Source: Patient Present Illness HPI Disclaimer: Please note that this report is being documented using DRAGON technology. This can lead to erroneous entry secondary to incorrect interpretation by the dictating instrument. HPI: 23-year-old otherwise healthy male presents for evaluation of sore throat. Symptoms began yesterday. He noted pain with swallowing but denies any difficulty swallowing, no problems eating and drinking. He denies fever, cough , URI symptoms or other changes in his health. States he has had sore throat before and treated with some medications however he does not recall which. Unknown whether or not he has had strep throat. States he is otherwise in his usual state of health and has no other complaints at this time. He denies any headaches, visual changes, skin rash, chest pain, shortness of breath, vomiting , diarrhea PMH: Denies PSH: Denies Allergies: Denies Social Hx: Social alcohol use, denies smoking or drug abuse Allergies: Coded Allergies: No Known Allergies (Unverified , 09/26/18) Nursing Documentation-PMH Past Medical History: No Stated History Review of Systems All Other Systems: negative except mentioned in HPI Physical Exam Vital Signs Date Time Temp Pulse Resp B/P (MAP) Pulse Ox O2 Delivery O2 Flow Rate FiO2 11/13/18 08:56 98.8 76 16 125/78 (94) 98 Room Air General: Awake and alert, no acute distress HEENT: NC/AT. EOMI. tonsils are 2+, nonobstructing. Uvula is midline. Retropharynx is erythematous but there is no exudate. Neck: Supple, trachea midline, mild anterior lymphadenopathy Cardiovascular: RRR. S1 and S2 normal Resp: Normal work of breathing. No cough, wheezing or crackles appreciated Skin: Intact. No abrasions, laceration or rash over the exposed skin MSK: Normal tone and bulk. Moving all extremities. No obvious deformity. Neuro: Awake and alert. Mentating appropriately. Medical Decision Making Diagnostic Impression: Primary Impression: Pharyngitis ER Course 23-year-old otherwise healthy male presents for evaluation of sore throat of one days duration. Patient is nontoxic-appearing, no exudates and is very low risk by [facility] criteria. Patient was given a dose of oral dexamethasone in the emergency department and discharged with outpatient follow-up. We did discuss strict return precautions however at this time I do not believe he requires strep testing or antibiotics. Will discharge home with PMD follow-up. He was instructed to use NSAIDs as needed for pain. He understands and agrees with the treatment plan will be discharged home. Last Vital Signs Date Time Temp Pulse Resp B/P (MAP) Pulse Ox O2 Delivery O2 Flow Rate FiO2 11/13/18 08:56 98.8 76 16 125/78 (94) 98 Room Air Disposition: HOME, SELF-CARE Condition: Stable [facility]errals: [facility] ([facility]P) Maura Adan [facility] Patient Instructions: Sore Throat Additional Instructions: Follow-up with your primary doctor in the next 3 to 4 days to make sure symptoms are improving. If you are unable to eat or drink, have significant difficulty breathing, changes in your voice, inability to swallow, develop high fevers or any sudden severe change in your health please return to the emergency department for reevaluation. Otherwise, you can follow-up with your primary doctor or with 1 of the clinics listed here for regular follow-up. Use Tylenol or Motrin as needed for control of pain and swelling. Dominick Saldaña MD Nov 13, 2018 09:12
[2018-11-13 09:14] VITALS: BP 121/81
[2018-11-13 09:15] VITALS: BP 121/81
[2018-11-13] MEDS ORDERED: Dexamethasone 4mg/ml vial ORAL ONE (09:15)
== END 2018-11-13 09:15 | disposition home or self-care (01) ==
LOC: EMR 09:08
DX: J06.9 Acute upper respiratory infection, unspecified (principal)
CPT/HCPCS: 99282; J8540

== ENCOUNTER 2018-12-15 23:57 | Emergency (ER) | payer OTHER ==
[~2018-12-15] VITALS: Ht 177.8 cm; Wt 77.1 kg
[2018-12-16 00:22] VITALS: BP 127/71
--- NOTE | 2018-12-16 01:07 | Emergency Room Report ---
History of Present Illness General Chief Complaint: Sore Throat Source: Patient Present Illness HPI 2 days of sore throat and pain with swallowing. Feverish and congestion. No nausea vomiting or diarrhea. No rashes. He has minimal congestion. No medications taken. Pain is rated 7/10 at this time. The pain is burning and worse when he swallows. Prior history of strep throat. This feels similar. He is exposed to ill people at his job. Allergies: Coded Allergies: No Known Allergies (Unverified , 09/26/18) Patient History Past Medical History: see triage record Social History: Denies: smoking, alcohol use, drug use Social History Narrative Reservation Sales Agent at [employer] Reviewed Nursing Documentation: PMH: Agreed; PSxH: Agreed Review of Systems All Other Systems: negative except mentioned in HPI Physical Exam Vital Signs Date Time Temp Pulse Resp B/P (MAP) Pulse Ox O2 Delivery O2 Flow Rate FiO2 12/16/18 00:01 98.1 81 16 127/71 (89) 96 Room Air Sp02 EP Interpretation: reviewed, normal General Appearance: well appearing, no apparent distress, GCS 15 Head: normocephalic Eyes: bilateral eye normal inspection, bilateral eye PERRL, bilateral eye EOMI ENT: moist mucus membranes, pharyngeal erythema Neck: full range of motion, supple, other - Thyroid enlarged with several nodules 1 greater on the right-hand side but non-tender Respiratory: chest non-tender, lungs clear, normal breath sounds Cardiovascular #1: regular rate, rhythm Cardiovascular #2: 2+ radial (R) Gastrointestinal: normal inspection Musculoskeletal: gait/station normal Neurologic: alert, grossly normal Psychiatric: mood/affect normal Skin: normal color, no rash Medical Decision Making Diagnostic Impression: Primary Impression: Acute pharyngitis Qualified Codes: J02.9 - Acute pharyngitis, unspecified Additional Impression: Goiter ER Course Patient presents with sore throat for 2 days. Differential includes strep and viral. There is no peritonsillar abscess. He also has a goiter. This is not tender and therefore thyroiditis is excluded. Prednisone and antibiotics are indicated. In addition the patient will be treated for pain. Discussed the finding of thyroid enlargement and the need for follow-up. Also discussed treatment plan. Patient stable for outpatient observation and treatment. Last Vital Signs Date Time Temp Pulse Resp B/P (MAP) Pulse Ox O2 Delivery O2 Flow Rate FiO2 12/16/18 01:14 98.9 80 18 118/68 98 Room Air Status: improved Disposition: HOME, SELF-CARE Condition: Improved Scripts Acetaminophen (Tylenol) 325 Mg Tablet 650 MG ORAL Q6H PRN for Prn Pain/Headache/Temp > 101, #20 TAB 0 Refills Prov: Moy Harrison MD 12/16/18 Amoxicillin* (AMOXIL*) 500 Mg Capsule 500 MG ORAL THREE TIMES A DAY, #21 CAP Prov: Moy Harrison MD 12/16/18 Moy Harrison MD Dec 16, 2018 01:07
[2018-12-16] MEDS ORDERED: TYLENOL325 MG ORAL (01:08)
[2018-12-16] MEDS ORDERED: AMOXICILLIN500 MG ORAL (01:08)
[2018-12-16 01:14] VITALS: BP 118/68
== END 2018-12-16 01:14 | disposition home or self-care (01) ==
LOC: EMR 12-16 00:15
DX: J02.9 Acute pharyngitis, unspecified (principal); E04.9 Nontoxic goiter, unspecified
CPT/HCPCS: J7512; Z7502; 99282

== ENCOUNTER 2019-01-03 16:00 | Emergency (ER) | payer OTHER ==
[~2019-01-03] VITALS: Ht 177.8 cm; Wt 77.1 kg
--- NOTE | 2019-01-03 16:20 | NUR ---
ED Nurse Note: Patient nursed in treatment room.
--- NOTE | 2019-01-03 16:43 | NUR ---
ED Nurse Note: Patient reports a feeling of altered sensation to the entire left leg which had onset of one week ago - states he has not injured the leg but states that he did miss one step on the stairs just prior to the feeling of altered sensation and that he felt a pain in his knee at that time. No obvious swelling or deformity. Good pulses, foot warm, isd able to feel the prsence of sensation of touch to the extremity buit states that this is altered compared to the right leg. States he has no pain.
[2019-01-03 16:47] VITALS: BP 139/79
--- NOTE | 2019-01-03 17:32 | NUR ---
AMA: SEE AMA FORM.
--- NOTE | 2019-01-03 17:48 | Emergency Room Report ---
History of Present Illness General Chief Complaint: General Complaint Source: Patient (Heidi Gutiérrez) Present Illness HPI 23-year-old male complaining of left leg weakness and numbness x1 week. Patient that he tripped down a few steps 2 weeks ago. Had back pain, now improved. Denies pain or bowel bladder incontinence. Normal gait. (Heidi Gutiérrez) Allergies: Coded Allergies: No Known Allergies (Unverified , 09/26/18) Patient History Past Medical History: none Past Surgical History: none Social History: Reports: alcohol use (Heidi Gutiérrez) Nursing Documentation-[facility] Past Medical History: No Stated History (Heidi Gutiérrez) Review of Systems All Other Systems: negative except mentioned in HPI (Heidi Gutiérrez) Physical Exam Vital Signs Date Time Temp Pulse Resp B/P (MAP) Pulse Ox O2 Delivery O2 Flow Rate FiO2 01/03/19 16:14 98.1 92 18 145/89 (107) 97 Room Air Sp02 EP Interpretation: reviewed, normal General Appearance: no apparent distress, alert, GCS 15, non-toxic Respiratory: chest non-tender, lungs clear, normal breath sounds, speaking full sentences Cardiovascular #1: regular rate, rhythm, no edema Musculoskeletal: other - lumbar region: mild tenderness to paravertebral muscles, negative SLR. Neurologic: alert, oriented x3, responsive, motor strength/tone normal, sensory intact, speech normal (Heidi Gutiérrez) Medical Decision Making PA Attestation This patient was seen under the direct supervision of Dr. Harrison, who directed all aspects of care and diagnostic interpretation. (Heidi Gutiérrez) Diagnostic Impression: Primary Impression: Paresthesia Additional Impressions: Contusion of left knee Qualified Codes: S80.02XA - Contusion of left knee, initial encounter Back strain Qualified Codes: S39.012A - Strain of muscle, fascia and tendon of lower back , initial encounter ER Course ED course HPI: 23-year-old male complaining of left leg weakness and numbness x1 week. Patient that he tripped down a few steps 2 weeks ago. Had back pain, now improved. Denies pain or bowel bladder incontinence. Normal gait. Ddx: fracture, sprain, diabetic neuropathy Orders/ Interventions: Patient seen and examined by Dr. Harrison. Ordered Accu-Chek and lumbar Xray. Ordered ibuprofen. At 1740, patient requested to leave AMA, to care for girlfriend. Patient refused further testing, imaging, and further admission and choosing to leave against medical advice. Patient was advised of your risks of leaving and understand that permanent harm (permanent numbness or weakness), or even , can occur from failing to follow the recommendations of the physician. Patient ambulatory with strong steady gait. Disposition: AMA Please note that this Emergency Department Report was dictated using [employer] rental manager technology software, occasionally this can lead to erroneous entry secondary to interpretation by the dictation equipment. (Heidi Gutiérrez) ER Course Please see above note. History obtained by me. He fell 2 weeks ago climbing stairs and hit his left knee. There is some mild back pain at that time. He improved. He reports that he has some lower sacral pain with sitting and standing. His job is a weapons officer. He says the pain is worsened during his job. His left leg has felt weak to him. There is numbness along the lateral side of the leg which is subjective. He denies wearing tight pants or other trauma. His mother has diabetes and is disabled in the left leg from an unknown source. 10 point performed by me. My exam reveals lower back tenderness. Straight leg raise is negative. Subjective numbness in the lateral side of the thigh. Lumbar films and ibuprofen ordered. Accu-Chek also ordered. Patient states his girlfriend is at [employer] and with some OB issue. He insists on leaving AGAINST MEDICAL ADVICE.. Risk of permanent weakness and numbness of his left leg explained to patient. (Moy Harrison MD) Last Vital Signs Date Time Temp Pulse Resp B/P (MAP) Pulse Ox O2 Delivery O2 Flow Rate FiO2 01/03/19 16:47 98.5 78 16 139/79 98 Room Air Status: unchanged (Heidi Gutiérrez) Last Vital Signs Date Time Temp Pulse Resp B/P (MAP) Pulse Ox O2 Delivery O2 Flow Rate FiO2 01/03/19 16:47 98.5 78 16 139/79 98 Room Air Status: unchanged (Moy Harrison MD) Disposition: AGAINST MEDICAL ADVICE Condition: Stable Referrals: NOT CHOSEN [facility]/,REFERRING (PCP) Additional Instructions: Patient advised to return to ED if he changes his mind. Heidi Gutiérrez Jan 03, 2019 17:48 Moy Harrison MD Jan 04, 2019 01:43
[2019-01-04] MEDS ORDERED: IBUPROFEN600 MG ORAL (06:41)
== END 2019-01-03 17:45 | disposition left against medical advice (07) ==
LOC: EMR 17:14
DX: R20.2 Paresthesia of skin (principal); S80.02XA Contusion of left knee, initial encounter; S39.012A Strain of muscle, fascia and tendon of lower back, initial encounter; W10.9XXA Fall (on) (from) unspecified stairs and steps, initial encounter; Y92.9 Unspecified place or not applicable
CPT/HCPCS: 99282

== ENCOUNTER 2019-01-04 03:34 | Emergency (ER) | payer OTHER ==
[~2019-01-04] VITALS: Ht 177.8 cm; Wt 77.1 kg
[2019-01-04 03:43] VITALS: BP 136/75
--- NOTE | 2019-01-04 03:43 | NUR ---
ED Nurse Note: pt ambulated to c/o left leg numbness starting a week ago. pt states it was a sudden on set at the time and has not gone away. denies trauma to area
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
--- NOTE | 2019-01-04 05:30 | NUR ---
ED Nurse Note: pt taken to CT
[2019-01-04 05:35] VITALS: BP 124/72
--- NOTE | 2019-01-04 05:40 | NUR ---
ED Nurse Note: pt returned from CT
--- NOTE | 2019-01-04 06:28 | Diagnostic Imaging Report ---
EXAM: CT Lumbar Spine Without Intravenous Contrast CLINICAL HISTORY: INJ TECHNIQUE: Axial computed tomography images of the lumbar spine without intravenous contrast. CTDI is 64.8 mGy and DLP is 2345.9 mGy-cm. One or more of the following dose reduction techniques were used: automated exposure control, adjustment of the mA and or kV according to patient size, use of iterative reconstruction technique. Coronal and sagittal reconstructions are performed COMPARISON: No relevant prior studies available. FINDINGS: Vertebrae: Unremarkable. No acute fracture. Discs spinal canal neural foramina: No acute findings. No spinal canal stenosis. Soft tissues: Unremarkable. Appendix: appendix is mildly dilated to 8 cm in maximal diameter, without surrounding mesenteric inflammatory change IMPRESSION: Normal-appearing lumbar spine. Appendix is mildly dilated to 8 cm in maximal diameter, without surrounding mesenteric inflammatory change, likely patient's baseline. Early appendicitis is less likely but cannot be entirely excluded. If this is of concern, please correlate with clinical and laboratory findings.
[2019-01-04] MEDS ORDERED: IBUPROFEN600 MG ORAL (06:41)
[2019-01-04 06:43] VITALS: BP 127/76
== END 2019-01-04 06:43 | disposition home or self-care (01) ==
LOC: EMR 04:21
DX: M54.9 Dorsalgia, unspecified (principal); R20.2 Paresthesia of skin; V49.9XXA Car occupant (driver) (passenger) injured in unspecified traffic accident, initial encounter; Y92.410 Unspecified street and highway as the place of occurrence of the external cause
CPT/HCPCS: 72131; Z7502; 99284

== ENCOUNTER 2019-01-07 04:18 | Emergency (ER) | payer OTHER ==
[~2019-01-07] VITALS: Ht 177.8 cm; Wt 77.1 kg
--- NOTE | 2019-01-07 04:28 | NUR ---
ED Nurse Note: pt walked in to ED C/O left knee pain since a week ago. pt states he hears a popping sound when he walks. denies any injury/trauma. pt was at [facility] a week ago and the pain did not get any better. pt is alert x4. VSS
[2019-01-07] MEDS ORDERED: IBUPROFEN600 MG ORAL (04:40)
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
[2019-01-07 04:44] VITALS: BP 125/79
== END 2019-01-07 04:44 | disposition home or self-care (01) ==
LOC: EMR 04:34
DX: S83.92XA Sprain of unspecified site of left knee, initial encounter (principal); V49.9XXA Car occupant (driver) (passenger) injured in unspecified traffic accident, initial encounter; Y92.410 Unspecified street and highway as the place of occurrence of the external cause
CPT/HCPCS: 99282

== ENCOUNTER 2019-06-03 01:24 | Emergency (ER) | payer OTHER ==
[~2019-06-03] VITALS: Ht 177.8 cm; Wt 77.1 kg
[~2019-06-03 01:24] MED LIST changes: +VOLTAREN100 G1 TP
[2019-06-03 01:34] VITALS: BP 144/65
--- NOTE | 2019-06-03 01:38 | NUR ---
ED Nurse Note: Patient walked in to ER c/o sore throat, headache x 2-3 days. AAO x4, VSS at this time.
--- NOTE | 2019-06-03 01:50 | NUR ---
ED Nurse Note: ERMD at bedside.
[2019-06-03] MEDS ORDERED: IBUPROFEN600 MG ORAL (01:58)
[2019-06-03] MEDS ORDERED: AUGMENTIN 875-1 EAC1 ORAL (01:58)
--- NOTE | 2019-06-03 01:58 | Emergency Room Report ---
History of Present Illness General Chief Complaint: Sore Throat Source: Patient Present Illness HPI Is a 23-year-old male with no past medical history. He presents with complaint of sore throat. This been a recurrent issue that he get every 6 months or a year. This episode is been ongoing for 3 to 4 days. Has fever. No problem with drooling. Pain is 8 out of 10. Worse with swallowing and eating. Better with rest. No cough or congestion. No ear pain. Has not take anything for it. Allergies: Coded Allergies: No Known Allergies (Unverified , 09/26/18) Patient History Past Medical History: see triage record, old chart reviewed Past Surgical History: none Pertinent Family History: none Social History: Denies: smoking Immunizations: other Reviewed Nursing Documentation: PMH: Agreed; PSxH: Agreed Nursing Documentation-PMH Past Medical History: No Stated History Review of Systems Eye: Denies: eye pain, blurred vision ENT: Reports: throat pain; Denies: ear pain, nose congestion, throat swelling Respiratory: Denies: cough, shortness of breath Cardiovascular: Denies: chest pain, palpitations Gastrointestinal: Denies: abdominal pain, diarrhea, nausea, vomiting Musculoskeletal: Denies: back pain, joint pain Skin: Denies: rash Neurological: Denies: headache, numbness Endocrine: Denies: increased thirst, increased urine Hematologic/Lymphatic: Denies: easy bruising All Other Systems: negative except mentioned in HPI Physical Exam Vital Signs Date Time Temp Pulse Resp B/P (MAP) Pulse Ox O2 Delivery O2 Flow Rate FiO2 06/03/19 01:27 99.3 130 22 144/65 (91) 95 Room Air Vitals with low-grade fever and tachycardia Sp02 EP Interpretation: reviewed, normal General Appearance: well appearing, no apparent distress, alert Head: normocephalic, atraumatic Eyes: bilateral eye PERRL, bilateral eye EOMI ENT: hearing grossly normal, pharyngeal erythema Neck: full range of motion, supple, no meningismus Respiratory: chest non-tender, lungs clear, normal breath sounds Cardiovascular #1: regular rate, rhythm, no murmur Gastrointestinal: normal bowel sounds, non tender, no mass, no organomegaly, no bruit, non-distended Musculoskeletal: back normal, normal range of motion, gait/station normal Psychiatric: mood/affect normal Medical Decision Making Diagnostic Impression: Primary Impression: Acute pharyngitis Qualified Codes: J02.9 - Acute pharyngitis, unspecified ER Course Patient with tonsillitis. No evidence of peritonsillar abscess, retropharyngeal abscess or Samm angina. Will discharge home. Last Vital Signs Date Time Temp Pulse Resp B/P (MAP) Pulse Ox O2 Delivery O2 Flow Rate FiO2 06/03/19 01:34 99.3 22 144/65 95 Room Air 06/03/19 01:27 130 Status: improved Disposition: HOME, SELF-CARE Condition: Stable Scripts Ibuprofen* (MOTRIN*) 600 Mg Tablet 600 MG ORAL THREE TIMES A DAY, #30 TAB 0 Refills Prov: Shola Melchor MD 06/03/19 Amoxicillin/Potassium Clav 875-125* (AUGMENTIN 875-125 TABLET*) 1 Each Tablet 1 TAB ORAL TWICE A DAY, #14 TAB Prov: Shola Melchor MD 06/03/19 Referrals: [facility] (PCP) Patient Instructions: Tonsillitis Additional Instructions: Increase fluids. Salt water gargle. Follow-up with your doctor in 7 days. Return if worse. Shola Melchor MD Jun 03, 2019 01:58
[2019-06-03 02:02] VITALS: BP 139/75
--- NOTE | 2019-06-03 02:02 | NUR ---
ER DISCHARGE NOTE: Patient is cleared to be discharged per ERMD, pt is aox4, on room air, with stable vital signs. pt was given dc and prescription instructions, pt was able to verbalize understanding, pt id band removed. pt is able to ambulate with steady gait. pt took all belongings. pt stable upon discharge.
== END 2019-06-03 02:02 | disposition home or self-care (01) ==
LOC: EMR 01:49
DX: J02.9 Acute pharyngitis, unspecified (principal)
CPT/HCPCS: J7512; Z7502; 99282

== ENCOUNTER 2019-06-11 20:54 | Emergency (ER) | payer OTHER ==
[~2019-06-11] VITALS: Ht 177.8 cm; Wt 77.1 kg
[~2019-06-11 20:54] MED LIST changes: +AUGMENTIN 875-1 EAC1 ORAL
[2019-06-11 21:45] VITALS: BP 123/80
--- NOTE | 2019-06-11 21:45 | NUR ---
ED Nurse Note: Pt walked into ED from home for c/o L leg and arm pain/numbness/tingling x 6 months. Pt denies any trauma to L leg or arm. Pt is aaox4, no acute distress noted. Pt states pain is intermittent and dull in nature.
[2019-06-11] MEDS ORDERED: IBUPROFEN600 MG ORAL (22:10)
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
[2019-06-11 22:20] VITALS: BP 123/80
== END 2019-06-11 22:30 | disposition home or self-care (01) ==
LOC: EMR 21:45
DX: R20.2 Paresthesia of skin (principal)
CPT/HCPCS: 99281

== ENCOUNTER 2020-06-20 08:35 | Emergency (ER) | payer OTHER ==
[~2020-06-20] VITALS: Ht 177.8 cm; Wt 83.9 kg
--- NOTE | 2020-06-20 08:41 | NUR ---
pt arrives to ER with complaints of sore throat x 3 days. pt states getting strep annually. pt in NAD distress at this time pt is complaining discomfort with redness and tenderness.
[2020-06-20 08:44] VITALS: BP 133/97
[2020-06-20] MEDS ORDERED: IBUPROFEN600 M1 ORAL (09:26)
[2020-06-20] MEDS ORDERED: AMOXICILLIN500 MG ORAL (09:26)
--- NOTE | 2020-06-20 10:15 | Emergency Room Report ---
History of Present Illness General Chief Complaint: Sore Throat Source: Patient Present Illness HPI 25-year-old male presents for evaluation complaining of sore throat. X3 days. Dull, 8 out of 10, nonradiating. Denies cough. Denies fevers or chills. Denies sick contacts or recent travel. States he typically gets a throat infection every year which requires antibiotics. No other aggravating relieving factors. 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 Patient History Past Medical History: none Past Surgical History: none Pertinent Family History: none Social History: Denies: smoking, alcohol use, drug use Immunizations: UTD Reviewed Nursing Documentation: PMH: Agreed; PSxH: Agreed Nursing Documentation-PM Past Medical History: No Stated History Review of Systems All Other Systems: negative except mentioned in HPI Physical Exam Vital Signs Date Time Temp Pulse Resp B/P (MAP) Pulse Ox O2 Delivery O2 Flow Rate FiO2 06/20/20 08:38 98.1 70 16 133/97 (109) 96 Room Air Sp02 EP Interpretation: reviewed, normal General Appearance: no apparent distress, alert, GCS 15, non-toxic Head: normocephalic, atraumatic Eyes: bilateral eye normal inspection, bilateral eye PERRL ENT: hearing grossly normal, no angioedema, normal voice, pharyngeal erythema Neck: full range of motion, supple/symm/no masses Respiratory: chest non-tender, lungs clear, normal breath sounds, speaking full sentences Cardiovascular #1: regular rate, rhythm, no edema Cardiovascular #2: 2+ carotid (R), 2+ carotid (L), 2+ radial (R), 2+ radial (L), 2+ dorsalis pedis (R), 2+ dorsalis pedis (L) Gastrointestinal: normal bowel sounds, non tender, soft, non-distended, no guarding, no rebound Rectal: deferred Genitourinary: normal inspection, no CVA tenderness Musculoskeletal: back normal, normal range of motion, gait/station normal, non- tender Neurologic: alert, motor strength/tone normal, oriented x3, sensory intact, responsive, speech normal Psychiatric: judgement/insight normal, memory normal, mood/affect normal, no suicidal/homicidal ideation Reflexes: 3+ bicep (R), 3+ bicep (L), 3+ tricep (R), 3+ tricep (L), 3+ knee (R), 3+ knee (L) Skin: no rash Lymphatic: no adenopathy Medical Decision Making Diagnostic Impression: Primary Impression: Pharyngitis Qualified Codes: J02.9 - Acute pharyngitis, unspecified ER Course Hospital Course 25-year-old male presents to ED complaining of sore throat Differential diagnoses include: URI, pharyngitis, otitis media Clinical course Patient placed on stretcher. After initial history, physical exam reveals a male in no acute distress. Bilateral TM unremarkable. There is pharyngeal erythema. No lymphadenopathy. I discussed findings with patient. Will discharge home with antibiotics. Safe for discharge with close outpatient follow-up Diagnosis - pharyngitis Stable and discharged home with prescriptions for Motrin, amoxicillin. Instructed to followup with PMD. return to ED if symptoms recur or worsen Last Vital Signs Date Time Temp Pulse Resp B/P (MAP) Pulse Ox O2 Delivery O2 Flow Rate FiO2 06/20/20 08:44 98.1 16 133/97 96 Room Air 06/20/20 08:38 70 Status: improved Disposition: HOME, SELF-CARE Condition: Stable Scripts Ibuprofen* (MOTRIN*) 600 Mg Tablet 600 MG ORAL Q8H PRN for FOR PAIN, #30 TAB 0 Refills Prov: Frank Hansen MD 06/20/20 Amoxicillin* (AMOXIL*) 500 Mg Capsule 500 MG ORAL THREE TIMES A DAY, #21 CAP Prov: Frank Hansen MD 06/20/20 Referrals: [facility] (PCP) Patient Instructions: Pharyngitis, [id number] Frank Hansen MD Jun 20, 2020 10:14
== END 2020-06-20 10:32 | disposition home or self-care (01) ==
LOC: EMR 09:24
DX: J02.9 Acute pharyngitis, unspecified (principal)
CPT/HCPCS: 99282